=== PATIENT | male | born 1960 | race Caucasian/White ===

== ENCOUNTER → 2016-04-14 | Outpatient (CLI) | payer BC | END | disposition home or self-care (01) | LOC: PCVCIMAG 10:04 | PROVIDERS: ATTEND Internal Medicine Cardiovascular Disease | DX: I10 Essential (primary) hypertension (principal); E78.00 Pure hypercholesterolemia, unspecified | CPT/HCPCS: 93325; 93351 ==

== ENCOUNTER → 2018-08-08 | Outpatient (CLI) | payer BC ==
--- NOTE | 2018-08-08 17:17 | PCVCIMAG ---
APPROVED REPORT Study performed: 08/08/2018 13:47:02 Exam: Stress Echocardiogram Indication: Dizziness, NEAR SYNCOPE, L ARM NUMBNESS Patient Location: Echo lab Stress Nurse: Ketty Del Real RN Room #: 2 Status: routine Ht: 5 ft 11 in HR: 64 bpm BP: 136/92 mmHg Rhythm: NSR Medical History Medical History: HTN, Hyperlipidemia Medications: Bystolic Previous Cardiac Procedures: none Pretest Chest Pain Characteristics: No chest pain Exercise History: Physically active Procedure The patient underwent an Exercise Stress Test using the Radha Protocol. Blood pressure, heart rate, and EKG were monitored. An Echocardiogram was performed by transportation technician in four stages in quad fashion. At peak stress, four selected images were obtained and placed side by side with resting images for comparison. Stress Test Details Stress Test: Exercise stress testing was performed using a Radha protocol. HR Resting HR: 71 bpmMax Heart Rate (APMHR): 162 bpm Max HR Achieved: 157 bpmTarget HR (85% APMHR): 137 bpm % of APMHR: 96 Recovery HR: 80 bpm HR response to stress: Normal HR response to stress BP Resting BP: 136/92 mmHg Max BP: 184/80 mmHg Recovery BP: 152/80 mmHg BP response to stress: Normal blood pressure response to stress. ECG Resting ECG: Sinus Rhythm Stress ECG: Sinus Rhythm ST Change: Upsloping ST depression Arrhythmia: Rare PVCs Recovery ECG: Sinus Rhythm Recovery ST Change: Non-ischemic Recovery Arrhythmia: None Clinical Reason for Termination: Maximal effort Stress Symptoms: fatigue Exercise duration: 14 min 11 sec Highest Stage Achieved: Stage 5: 5.0 mph at 18% grade. Exercise capacity: 17.5 METs Overall Exercise Capacity for Age: Excellent Scale: Active Angina Score: None No complications. Stress ECG Conclusion The patient exercised according to the RADHA protocol for 14:11 mins; achieving a work level of 17.5 METS. The resting heart rate of 64 bpm brodie to a maximum heart rate of 157 bpm. This value [id number] % of the maximal, age-predicted heart rate. The resting blood pressure of 136/92 mmHg, brodie to a maximum blood pressure of 184/80 mmHg. The exercise test was stopped due to fatigue. Pre-Stress Echo The resting Echocardiogram showed normal left ventricular contractility with an estimated Ejection Fraction of about 55-60%. Normal wall motion in all segments on baseline images. Post-Stress Echo The stress Echocardiogram showed normal left ventricular contractility with an estimated Ejection Fraction of about 65-70%. Normal augmentation of wall motion in all segments on post stress images. Clinical No clinical or ECG evidence for ischemia. Conclusion Clinical Response: Non-ischemic Exercise Capacity: Superior Stress ECG Response: Non-ischemic Stress Echo Images: Non-ischemic No clinical, EKG or echocardiographic evidence for ischemia. No clinical, EKG or echocardiographic evidence for ischemia. Normal stress echocardiogram with maximal exercise stress. <Conclusion> No clinical, EKG or echocardiographic evidence for ischemia. No clinical, EKG or echocardiographic evidence for ischemia. Normal stress echocardiogram with maximal exercise stress.
== END | disposition home or self-care (01) ==
LOC: PCVCIMAG 13:17
PROVIDERS: ATTEND Internal Medicine Cardiovascular Disease
DX: I10 Essential (primary) hypertension (principal); R42 Dizziness and giddiness; D16.02 Benign neoplasm of scapula and long bones of left upper limb; E78.2 Mixed hyperlipidemia; R20.0 Anesthesia of skin
CPT/HCPCS: 93325; 93351